=== PATIENT | female | born 1965 | race Caucasian/White ===

== ENCOUNTER 2019-06-07 19:10 | Emergency (ER) | payer OTHER, BC ==
[~2019-06-07] VITALS: Ht 157.5 cm; Wt 126.0 kg
[~2019-06-07 19:10] MED LIST: AMIT25TA PO; ELET40TA PO; LAMO200T3 PO; OXYC-302 PO
[2019-06-07 19:13] VITALS: BP 140/80
--- NOTE | 2019-06-07 19:19 | NUR ---
CHYNA RN: VINNY SABA FOR AN ALLERGIC REACTION. THE PT STATES SHE HAS "MANY" FOOD ALLERGIES, ATE SOMETHING AT A WORK DEMOCRAT AND SHORTLY BEGAN TO FEEL THOUGH "MY THROAT WAS CLOSING UP". SHE WAS GIVEN 50MG OF BENEDRYL PO AND FELT RELIEF. A LITTLE LATER SHE BEGAN TO FEEL THOUGH THE SWELLING WAS COMING BACK. FRIENDS CALLED [facility]. UPON ARRIVAL TO THE ER, SHE IS CAOX4, NO DISTRESS NOTED. LUNG SOUNDS CLEAR AND EQUAL BILATERALLY. 20G IV ESTABLISHED BY EMS, NO INTERVENTIONS BY EMS. PT ATTACHED TO ALL MONITORING EQUIPMENT. MOLLY [place] AT BEDSIDE EVALUATING PT. REPORT TO PRIMARY RN, STONEY.
[2019-06-07] MEDS ORDERED: FAMOTIDINE 20 MG TABLET ONE ×2 (19:21→19:27)
--- NOTE | 2019-06-07 19:24 | NUR ---
CHYNA RN: PT MEDICATED PER EMAR. 5 RIGHTS ADDRESSED
[2019-06-07] MEDS ORDERED: FAMOTIDINE 20 MG TABLET PO ONE (19:30)
--- NOTE | 2019-06-07 19:32 | NUR ---
PT DENIED any other breathing problems but still having tongue swollen pul ox intact >96% @ [facility]
--- NOTE | 2019-06-07 20:19 | NUR ---
PT'S symptoms are better pt is ok'd dc home per Dorothy ma
--- NOTE | 2019-06-07 20:42 | NUR ---
pt stated feels well now given dc instruction pt understood pt up ambulated to check out
== END 2019-06-07 20:45 | disposition home or self-care (01) ==
LOC: ED 20:37
DX: T78.1XXA Other adverse food reactions, not elsewhere classified, initial encounter (principal); R10.84 Generalized abdominal pain; G47.30 Sleep apnea, unspecified; Z90.49 Acquired absence of other specified parts of digestive tract; Z90.710 Acquired absence of both cervix and uterus; Z88.6 Allergy status to analgesic agent; Z88.0 Allergy status to penicillin
CPT/HCPCS: 99283; J7512

== ENCOUNTER → 2019-09-23 | Outpatient (CLI) | payer BC, OTHER | END | disposition home or self-care (01) | LOC: CFH 09:18 | PROVIDERS: ATTEND Family Medicine | DX: K76.0 Fatty (change of) liver, not elsewhere classified (principal); Z90.49 Acquired absence of other specified parts of digestive tract | CPT/HCPCS: 76700 ==

== ENCOUNTER → 2019-12-05 | Outpatient (CLI) | payer BC, OTHER | END | disposition home or self-care (01) | LOC: CVU 07:57 | PROVIDERS: ATTEND Internal Medicine Cardiovascular Disease | DX: R00.2 Palpitations (principal); R06.02 Shortness of breath | CPT/HCPCS: 93306 ==

== ENCOUNTER → 2020-01-03 | Outpatient (CLI) | payer BC, OTHER | END | disposition home or self-care (01) | LOC: CFH 08:05 | PROVIDERS: ATTEND Internal Medicine Cardiovascular Disease | DX: R06.02 Shortness of breath (principal); R00.2 Palpitations | CPT/HCPCS: 78452; 93017; A9502 ==

== ENCOUNTER 2020-08-17 08:49 | Outpatient (CLI) | payer OTHER ==
[~2020-08-17 08:49] MED LIST changes: -OXYC-302 PO; +OXYC1TAB14 PO
== END 2020-08-17 23:59 | disposition home or self-care (01) ==
LOC: RAD 08:49
PROVIDERS: ATTEND Psychiatry & Neurology Psychiatry
DX: R13.10 Dysphagia, unspecified (principal)
CPT/HCPCS: 74230